=== PATIENT | male | born 1965 | race African-American/Black ===

== ENCOUNTER 2016-09-09 13:21 | Emergency (ER) | payer MEDICAID, OTHER ==
[~2016-09-09] VITALS: Ht 185.4 cm; Wt 98.5 kg
[~2016-09-09 13:21] MED LIST: ATOR20TA15 PO; CARV6.252 PO; PANT20 PO; TIMO0.5S30 LEFT EYE; TRAV0.00 RIGHT EYE; ZANT150T2 PO
[2016-09-09 13:23] VITALS: BP 125/80; PULSE 92; RESP 20; TEMP 98.8; O2SAT 98
--- NOTE | 2016-09-09 17:20 | PD ---
HPI Chief Complaint: Lump, Cyst, Hernia Time Seen by Provider: 17:06 Travel History International Travel<30 days: No Contact w/Intl Traveler<30days: No Traveled to known affect area: No History of Present Illness HPI 51-year-old male here for evaluation of possible inguinal hernia. The patient is noticed a hernia for the last couple of months. When he woke up this morning he noticed that the hernia was "out" and was causing him pain. He applied ice to the area and was able to reduce the hernia. He had a bowel movement shortly after. He states that while at work today the hernia frequently popped out. He denies vomiting. He is currently in no abdominal pain. No history of abdominal surgeries. PFSH Past Medical History Arthritis: Yes Blood Disorders: No Cancer: No Cardiovascular Problems: Yes Chemotherapy: No Gastrointestinal Disorders: Yes GERD: Yes Glaucoma: Yes Genitourinary: No Hypertension: Yes Implanted Vascular Access Dvce: Yes Musculoskeletal: Yes Neurologic: No Psychiatric: No Reproductive: No Respiratory: No Radiation Therapy: No Past Surgical History Eye Surgery: Yes (HAS TUBE IN LEFT EYE FOR GLAUCOMA) Other Surgery: Yes (BILATERAL ORTHOSCOPIC KNEE SURGERY) Social History Alcohol Use: Yes (3-4 DRINKS/DAY) Tobacco Use: Yes Substance Use: No Allergies-Medications (Allergen,Severity, Reaction): Coded Allergies: Milk (Verified Allergy, Severe, DIARRHEA, 09/09/16) Reported Meds & Prescriptions Reported Meds & Active Scripts Active Protonix (Pantoprazole Sodium) 20 Mg Tab 20 Mg PO DAILY Reported Timolol Opth Drops 0.5 % Soln 1 Drop LEFT EYE BID Zantac (Ranitidine HCl) 150 Mg Tab 150 Mg PO DAILY Travatan Z Opth Drops (Travoprost) 0.004 % Soln 1 Drop RIGHT EYE HS Carvedilol 6.25 Mg Tab 6.25 Mg PO BID Atorvastatin (Atorvastatin Calcium) 20 Mg Tab 20 Mg PO HS Review of Systems Except as stated in HPI: all other systems reviewed are Neg Physical Exam Narrative GENERAL: Well-developed, well-nourished, comfortable, no apparent distress. SKIN: Focused skin assessment warm/dry. HEAD: Atraumatic. Normocephalic. EYES: Pupils equal and round. No scleral icterus. No injection or drainage. ENT: Mucous membranes pink and moist. CARDIOVASCULAR: Regular rate and rhythm. GASTROINTESTINAL: Abdomen soft, non-tender, nondistended. Normal bowel sounds. Small left inguinal direct hernia that is easily reducible. No other hernias. MUSCULOSKELETAL: No obvious deformities. No clubbing. No cyanosis. No edema. NEUROLOGICAL: Awake and alert. No obvious cranial nerve deficits. Motor grossly within normal limits. Normal speech. PSYCHIATRIC: Appropriate mood and affect; insight and judgment normal. Data Data Last Documented VS Vital Signs Date Time Temp Pulse Resp B/P Pulse Ox O2 Delivery O2 Flow Rate FiO2 09/09/16 13:23 98.8 92 20 125/80 98 Room Air MDM Medical Decision Making Medical Screen Exam Complete: Yes Emergency Medical Condition: Yes Differential Diagnosis Reducible hernia, incarcerated hernia, strangulated hernia Narrative Course This is a 51-year-old male who presents for evaluation of a left inguinal hernia. The patient states that he has noted the hernia for the last couple of months, however today when he woke up the hernia was out and he had a more difficult time than usual to reduce it. He states he applied ice to the area and was able to reduce it. While at work today the hernia frequent came out. On physical exam the patient has a small direct left inguinal hernia that is easily reducible. Normal bowel sounds in all 4 quadrants. His abdominal exam shows no tenderness, no peritoneal signs. I explained to the patient that he has a reducible inguinal hernia that can be followed up as an outpatient with general surgery. Patient informed him when he should return to the emergency department regarding his hernia. He also tells me that he has a history of hypertension and recently ran out of his carvedilol, and is requesting a refill. He was informed on when to return to the emergency department. He verbalizes understanding and agreement with plan. Diagnosis Primary Impression: Reducible left inguinal hernia Referrals: Primary Care Physician 3 days Additional Instructions: Follow-up with your primary care physician this week. Follow-up with general surgeon Dr. Wagoner regarding your hernia. Return to the emergency department for worsening symptoms or any other concerns. Scripts Carvedilol 6.25 Mg Tab6.25 Mg PO BID #60 TAB Ref 0 Prov:Gibran Hernandez MD 09/09/16 Disposition: 01 DISCHARGE HOME Condition: Stable Gibran Hernandez MD Sep 09, 2016 17:20
[2016-09-09] MEDS ORDERED: CARV6.252 PO (17:21)
== END 2016-09-09 17:33 | disposition home or self-care (01) ==
LOC: NEPD 13:21
DX: K40.90 Unilateral inguinal hernia, without obstruction or gangrene, not specified as recurrent (principal); I10 Essential (primary) hypertension; K21.9 Gastro-esophageal reflux disease without esophagitis; M13.80 Other specified arthritis, unspecified site; H40.9 Unspecified glaucoma; Z79.899 Other long term (current) drug therapy; Z72.0 Tobacco use
CPT/HCPCS: 99283

== ENCOUNTER 2016-10-14 15:16 | Emergency (ER) | payer SELFPAY ==
[~2016-10-14] VITALS: Ht 185.4 cm; Wt 90.0 kg
[2016-10-14 15:17] VITALS: BP 135/87; PULSE 85; RESP 20; TEMP 98.3; O2SAT 98
--- NOTE | 2016-10-14 15:31 | PD ---
Physical Exam Date Seen by Provider: Oct 14, 2016 Time Seen by Provider: 15:29 Narrative 51 YOBM C/O L INGINAL HERNIA OUT TODAY. UNABLE TO REDUCE AT HOME. NO N/V. NO UPPER ABD PAIN. PAIN 12/08 VS REVIEWED WAITING FOR BED PLACEMENT Data Data Last Documented VS Vital Signs Date Time Temp Pulse Resp B/P Pulse Ox O2 Delivery O2 Flow Rate FiO2 10/14/16 15:17 98.3 85 20 135/87 98 Room Air MDM Supervised Visit with DEBORAH: Kimani Zaman Oct 14, 2016 15:31
--- NOTE | 2016-10-14 16:05 | PD ---
HPI Chief Complaint: Abdominal Pain Time Seen by Provider: 15:53 Travel History International Travel<30 days: No Contact w/Intl Traveler<30days: No Traveled to known affect area: No History of Present Illness HPI Patient is a 51-year-old male who presents to emergency room with complaints of left sided inguinal hernia pain. Reports that he has history of left-sided inguinal hernia, reports that this is usually easily reducible. Reports that he has not been able to reduce his hernia since last night. Reports pain to his left groin. Patient with no abdominal pain, no nausea vomiting, no fevers or chills, no other complaints. History Past Medical Histgory Hx Cancer: No Hx Chemotherapy: No Hx Radiation Therapy: No Social History Alcohol Use: Yes (3-4 DRINKS/DAY) Tobacco Use: Yes Allergies-Medications (Allergen,Severity, Reaction): Coded Allergies: milk (Unverified Allergy, Severe, DIARRHEA, 10/13/16) Reported Meds & Prescriptions Reported Meds & Active Scripts Active Carvedilol 6.25 Mg Tab 6.25 Mg PO BID Protonix (Pantoprazole Sodium) 20 Mg Tab 20 Mg PO DAILY Reported Timolol Opth Drops 0.5 % Soln 1 Drop LEFT EYE BID Zantac (Ranitidine HCl) 150 Mg Tab 150 Mg PO DAILY Travatan Z Opth Drops (Travoprost) 0.004 % Soln 1 Drop RIGHT EYE HS Carvedilol 6.25 Mg Tab 6.25 Mg PO BID Atorvastatin (Atorvastatin Calcium) 20 Mg Tab 20 Mg PO HS Review of Systems General / Constitutional: No: Fever Eyes: No: Visual changes HENT: No: Headaches Cardiovascular: No: Chest Pain or Discomfort Respiratory: No: Shortness of Breath Gastrointestinal: Positive: Other (left sided inguinal hernia), No: Abdominal Pain Genitourinary: No: Dysuria Musculoskeletal: No: Pain Skin: No Rash Neurologic: No: Weakness Psychiatric: No: Depression Endocrine: No: Polydipsia Hematologic/Lymphatic: No: Easy Bruising Physical Exam Narrative GENERAL: NAD SKIN: Focused skin assessment warm/dry. HEAD: Atraumatic. Normocephalic. EYES: Pupils equal and round. No scleral icterus. No injection or drainage. ENT: No nasal bleeding or discharge. Mucous membranes pink and moist. NECK: Trachea midline. No JVD. CARDIOVASCULAR: Regular rate and rhythm. No murmur appreciated. RESPIRATORY: No accessory muscle use. Clear to auscultation. Breath sounds equal bilaterally. GASTROINTESTINAL: Abdomen soft, non-tender, nondistended. Hepatic and splenic margins not palpable. Patient with reducible left sided inguinal hernia with no signs of entrapment MUSCULOSKELETAL: No obvious deformities. No clubbing. No cyanosis. No edema. NEUROLOGICAL: Awake and alert. No obvious cranial nerve deficits. Motor grossly within normal limits. Normal speech. PSYCHIATRIC: Appropriate mood and affect; insight and judgment normal. Data Data Last Documented VS Vital Signs Date Time Temp Pulse Resp B/P Pulse Ox O2 Delivery O2 Flow Rate FiO2 10/14/16 15:17 98.3 85 20 135/87 98 Room Air MDM Medical Screen Exam Complete: Yes Emergency Medical Condition: No Differential Diagnosis left sided inguinal hernia Narrative Course Patient is a 51-year-old male with history of left-sided inguinal hernia. Patient reports that he is usually able to reduce his hernia by himself, reports that since last night, he was not able to reduce his hernia. Patient here for inguinal hernia the left side. On evaluation, patient has a self reducible inguinal hernia on the left side. Patient required no intervention or no reduction by myself. Patient reports resolution of symptoms upon arrival to the emergency room. Patient understands that he must follow-up with general surgery to have this inguinal hernia repaired. Patient at this time suffers no medical emergency or condition, patient will be screened out. Signs and symptoms of incarcerated inguinal hernia was reviewed patient, he will return to the emergency as needed. Primary Impression: Encounter for medical screening examination Disposition: DISCHARGE HOME Condition: Stable Aletha Beltran DO Oct 14, 2016 16:05
== END 2016-10-14 16:07 | disposition left against medical advice (07) ==
LOC: NEPD 15:16
DX: K40.90 Unilateral inguinal hernia, without obstruction or gangrene, not specified as recurrent (principal); Z72.0 Tobacco use
CPT/HCPCS: 99281

== ENCOUNTER 2017-05-02 01:52 | Emergency (ER) | payer SELFPAY ==
[~2017-05-02] VITALS: Ht 185.4 cm; Wt 91.0 kg
[2017-05-02 02:07] VITALS: BP 165/98; PULSE 125; RESP 20; TEMP 97.8; O2SAT 99
[2017-05-02] MEDS ORDERED: LIDOCAINE HCL 1% 30 ML VIAL INFIL ONE (03:00)
[2017-05-02] MEDS ORDERED: KETOROLAC TROMETHAMINE 60 MG/2 ML (IM) VIAL IM ONE (03:45)
[2017-05-02] MEDS ORDERED: DEXAMETHASONE SOD PHOS 4 MG/ML VIAL IM ONE (03:45)
[2017-05-02] MEDS ORDERED: PRED20 PO (03:52)
[2017-05-02] MEDS ORDERED: TRAM50 PO (03:52)
--- NOTE | 2017-05-02 03:52 | RADRPT ---
EXAM DATE/TIME: 05/02/2017 03:00 [facility] COMPARISON: No previous studies available for comparison. INDICATIONS : Pain and swelling to left knee x 1 day MEDICAL HISTORY : Gastroesophageal reflux disease. Hypertension SURGICAL HISTORY : Orthoscopic knee surgery- bilateral knees ENCOUNTER: Initial ACUITY: 1 day PAIN SCORE: 6/10 LOCATION: Left Knee FINDINGS: Moderately advanced degenerative changes in the medial and lateral compartments with chondrocalcinosi s menisci, narrowing of the joint space, and mild osteophyte formation. Mild degenerative changes ar e also present patellofemoral articulation with multiple small subarticular cysts in the anterior fem ur. No fracture seen. Tibial tubercle is unfused. There is distention of the suprapatellar soft ti ssues measuring in excess of 3.5 cm CONCLUSION: 1. Probable large knee effusion. 2. Moderate degenerative changes in the medial and lateral compartment. 3. No fracture seen. Yousif Brady MD on May 02, 2017 at 3:47 Board Certified Radiologist. This report was verified electronically.
--- NOTE | 2017-05-02 03:52 | PD ---
HPI Chief Complaint: Injury Time Seen by Provider: 02:44 Travel History International Travel<30 days: No Contact w/Intl Traveler<30days: No Traveled to known affect area: No History of Present Illness HPI 51-year-old male complains of left knee pain and swelling. Patient states that he started having left knee pain and swelling since yesterday. Patient does not remember any injury to left knee. Patient denies any fever or chills. Patient denies any history of left knee problem in the past. Patient stated the pain is sharp severe pain localized to left knee. Patient denies any pain radiation. On a scale of 1-10 the pain is a 10. PFSH Past Medical History Arthritis: Yes Blood Disorders: No Cancer: No Cardiovascular Problems: Yes Chemotherapy: No Gastrointestinal Disorders: Yes GERD: Yes Glaucoma: Yes Genitourinary: No Hypertension: Yes Implanted Vascular Access Dvce: Yes Musculoskeletal: Yes Neurologic: No Psychiatric: No Reproductive: No Respiratory: No Radiation Therapy: No Tetanus Vaccination: < 5 Years Influenza Vaccination: No Past Surgical History Eye Surgery: Yes (HAS TUBE IN LEFT EYE FOR GLAUCOMA) Other Surgery: Yes (BILATERAL ORTHOSCOPIC KNEE SURGERY) Social History Alcohol Use: Yes (3-4 DRINKS/DAY) Tobacco Use: Yes (4PPD) Substance Use: No Allergies-Medications (Allergen,Severity, Reaction): Coded Allergies: milk (Unverified Allergy, Severe, DIARRHEA, 05/02/17) Reported Meds & Prescriptions Reported Meds & Active Scripts Active Carvedilol 6.25 Mg Tab 6.25 Mg PO BID Protonix (Pantoprazole Sodium) 20 Mg Tab 20 Mg PO DAILY Reported Timolol Opth Drops 0.5 % Soln 1 Drop LEFT EYE BID Zantac (Ranitidine HCl) 150 Mg Tab 150 Mg PO DAILY Travatan Z Opth Drops (Travoprost) 0.004 % Soln 1 Drop RIGHT EYE HS Carvedilol 6.25 Mg Tab 6.25 Mg PO BID Atorvastatin (Atorvastatin Calcium) 20 Mg Tab 20 Mg PO HS Review of Systems General / Constitutional: No: Fever Eyes: No: Visual changes HENT: No: Headaches Cardiovascular: No: Chest Pain or Discomfort Respiratory: No: Shortness of Breath Gastrointestinal: No: Abdominal Pain Genitourinary: No: Dysuria Musculoskeletal: Positive: Pain Skin: No Rash Neurologic: No: Weakness Psychiatric: No: Depression Endocrine: No: Polydipsia Hematologic/Lymphatic: No: Easy Bruising Physical Exam Narrative GENERAL: Well-nourished, well-developed patient. SKIN: Focused skin assessment warm/dry. HEAD: Normocephalic. EYES: No scleral icterus. No injection or drainage. NECK: Supple, trachea midline. No JVD or lymphadenopathy. CARDIOVASCULAR: Regular rate and rhythm without murmurs, gallops, or rubs. RESPIRATORY: Breath sounds equal bilaterally. No accessory muscle use. GASTROINTESTINAL: Abdomen soft, non-tender, nondistended. MUSCULOSKELETAL: No cyanosis, or edema. BACK: Nontender without obvious deformity. No CVA tenderness. Patient has soft tissue swelling with large effusion noted on the left knee joint. Limited range of motion of the left knee secondary to pain. Left knee joint stable. Data Data Last Documented VS Vital Signs Date Time Temp Pulse Resp B/P (MAP) Pulse Ox O2 Delivery O2 Flow Rate FiO2 05/02/17 02:07 97.8 125 20 165/98 (120) 99 Orders Orders Knee, Ltd (1 Or 2vws) (05/02/17 02:48) Lidocaine 1% Inj (Xylocaine 1% Inj) (05/02/17 03:00) Synovial Fl Cell Count + Diff (05/02/17 02:49) Synovial Fluid Crystals (05/02/17 02:49) Fluid Culture And Gram Stain (05/02/17 02:50) Ketorolac Inj (Toradol Inj) (05/02/17 03:45) Dexamethasone Inj (Decadron Inj) (05/02/17 03:45) Splint Or Brace Apply/Monitor (05/02/17 03:43) Crutches (05/02/17 03:43) MDM Medical Decision Making Medical Screen Exam Complete: Yes Emergency Medical Condition: Yes Differential Diagnosis Differential diagnosis including osteoarthritis, gouty arthritis, ligament injury, fracture, dislocation. Narrative Course 51-year-old male with left knee pain and with large effusion. Nontraumatic. Toradol 60 mg IM. Decadron 8 mg IM. Knee immobilizer and crutches given. Diagnosis Primary Impression: Effusion, left knee Patient Instructions: General Instructions Additional Instructions: Take medication as directed for pain. Follow-up with an orthopedist. Med/Other Pt SpecificInfo: Prescription(s) given Scripts Tramadol (Ultram) 50 Mg Tab 50 MG PO Q6H Y for PAIN, #20 TAB 0 Refills Prov: José Miguel Rodrigez MD 05/02/17 Prednisone (Prednisone) 20 Mg Tab 20 MG PO BID, #10 TAB 0 Refills Prov: José Miguel Rodrigez MD 05/02/17 Disposition: 01 DISCHARGE HOME Condition: Stable José Miguel Rodrigez MD May 02, 2017 03:52
[2017-05-02 04:55] LABS: WBC, SYNOVIAL FLUID 23975 /MM3 (0-200)
== END 2017-05-02 04:22 | disposition home or self-care (01) ==
LOC: NEPE 01:52
DX: M25.462 Effusion, left knee (principal); F17.200 Nicotine dependence, unspecified, uncomplicated; I10 Essential (primary) hypertension; K21.9 Gastro-esophageal reflux disease without esophagitis
CPT/HCPCS: 73560; 87070; 87205; 89051; 89060; 96372; 99284; E0113; J1100; J1885; L1830